=== PATIENT | female | born 1965 | race Caucasian/White ===

== ENCOUNTER → 2021-07-31 | Outpatient (RCR) | payer BC ==
[~2021-07-31] VITALS: Ht 170.2 cm; Wt 56.4 kg
[~2021-07-31] MED LIST: ATROVENT HFA IH; ESTRADIOL42.5 GM VG; RESTASIS 0.4 M0.4 M1 OU; SINGULAIR 110 MG/TAB PO; SYMBICORT1 AE3 IH
[2021-07-31 13:34] VITALS: BP 114/71
== END ==
LOC: AMSURD
DX: S61.259A Open bite of unspecified finger without damage to nail, initial encounter (principal); W55.81XA Bitten by other mammals, initial encounter

== ENCOUNTER 2021-08-14 10:03 | Outpatient (RCR) | payer BC ==
--- NOTE | 2021-08-03 14:05 | NUR ---
retyped up the Orders for pharmacy to proceed with corrected orders. They are signed by Dr. Puckett and will now be scanned into chart. Please disregard previous one time order.
[2021-08-07 10:27] VITALS: BP 129/87
[~2021-08-14] VITALS: Ht 170.2 cm; Wt 56.4 kg
[2021-08-14 10:15] VITALS: BP 134/100
[2021-08-14 10:21] VITALS: BP 112/78
== END 2021-08-14 10:32 | disposition home or self-care (01) ==
LOC: AMSURD 10:03
DX: Z23 Encounter for immunization (principal); S61.259A Open bite of unspecified finger without damage to nail, initial encounter; W55.81XA Bitten by other mammals, initial encounter